=== PATIENT | female | born 1980 | race Caucasian/White ===

== ENCOUNTER 2021-03-27 07:51 | Day surgery (SDC) | payer BC, SELFPAY ==
[2021-03-27] VITALS (7 sets, daily range): BP systolic 104–135; BP diastolic 63–96; PULSE 72–89; RESP 16–18; TEMP 36–36.6; O2SAT 98–100; BMI 40.0
[2021-03-27 08:35] LABS: Hematocrit 42.3 % (37-47); Mean Corp Hgb Conc 33.1 g/dL (32-36); Mean Corpuscular Hgb 29.1 pg (27.0-32.0); Mean Corpuscular Volume 87.9 fL (81-99); Platelet Count 289 K/mm3 (150-450); RBC Distribution Width CV 12.8 % (11.6-14.6); RBC Distribution Width SD 41.5 fl (35.1-43.9); Red Blood Count 4.81 M/mm3 (4.2-5.4)
[2021-03-27 08:36] LABS: Internal QC Validated? YES +Cl - CLEAR BKGD; Pregnancy, Urine Negative Negative
[2021-03-27] MEDS: Lactated Ringers 1,000 ML 100 ML IV (08:38)
--- NOTE | 2021-03-27 09:23 | PCM.HP.OB ---
HPI - General HPI Narrative POLINA RODRIGUES, is a 40 F who presents for scheduled IUD removal, hysteroscopy, D&C, uterine ablation for menorrhagia and DUB with IUD in place. PFSH PFSH Medical History (Updated 03/27/21 @ 09:[address] Lilli Suarez, DO) Anxiety Arthritis Asthma Cardiology follow-up encounter Former smoker History of echocardiogram History of ganglion cyst Shortness of breath on exertion Home Medications albuterol sulfate 1 inh INHALATION Q6H PRN 03/24/21 [History Last Taken Unknown] naproxen sodium [Aleve] 220 mg PO BID PRN 03/24/21 [History Last Taken Unknown] Allergy/AdvReac Type Severity Reaction Status Date / Time No Known Allergies Allergy Verified 03/27/21 08:32 Surgical History (Updated 03/24/21 @ 14:19 by Anel Crisostomo) History of Hx of arthroscopic knee surgery Hx of dilation and curettage Hx of foot surgery Hx of tonsillectomy Social History (Updated 05/30/18 @ 12:55 by Jermain DOSHI, PA) Smoking Status: Former smoker Vital Signs Vital Signs Vital Signs: 03/27/21 08:33 Temperature 96.8 F L Temperature Source Temporal Pulse Rate 72 Respiratory Rate 16 Respiratory Pattern Normal Blood Pressure 135/86 H Blood Pressure Mean 102 Blood Pressure Source Monitor Blood Pressure Position Semi-Fowlers Blood Pressure Location Right Arm Pulse Ox 100 Oxygen Delivery Method Room Air Weight Weight: 226 lb 3.108 oz Body Mass Index (BMI) 40.0 Labs Labs Labs: Blood Type Pending Antibody Screen Pending Hct 42.3 % (37-47) Hgb 14.0 g/dL (12.0-15.0) Assessment & Plan (1) DUB (dysfunctional uterine bleeding): PLAN: See scanned in H&P. Patient was seen in pre op. IUD removal, hysteroscopy, D&C, Kiah uterine ablation were discussed and patient desires to proceed as planned. No changes noted to H&P. (2) Menorrhagia:
--- NOTE | 2021-03-27 09:30 | EMB_PTH ---
PATIENT: POLINA RODRIGUES [place] [facility] [place][id number] AGE/SX: 40/F ROOM: RE03/27/[address]: Dr. Lilli Suarez DO : 1980 BED: DIS: 03/27/2021 SPEC #: [id number] RECD: 03/27/21 15:30 STATUS: KAVYA REPro #: [id number] CELE: 03/27/21 09:[address]: Lilli Suarez DEPT: SURGICAL PATHOLOGY RECD BY: Paloma Carrillo ENTERED: 03/28/21 12:02 SP TYPE: ENDOM BX/C DESHAUN DR: Dr. 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 Chronic endometritis. Rare strips of benign superficial endocervix and squamous mucosa. AM:mariaan 03/31/2021 MICROSCOPIC DESCRIPTION Slides are reviewed. GROSS DESCRIPTION Received in fixative is one container labeled with the patient's name and designated endometrial curettings. The specimen consists of multiple fragments of hemorrhagic mucoid tissue that in aggregate measure 7.5 x 3 x 0.3 cm. The entire specimen is submitted in three cassettes. / JACE:mariana 03/28/21 TC:5 [facility]: [id number]
[2021-03-27] MEDS: Lidocaine 1% /Epi 1:100 (20ml) 20 ML Vial (09:46)
--- NOTE | 2021-03-27 10:12 | OP.PCM_ITS ---
Report of Operation Date of Procedure: 03/27/21 Pre-Operative Diagnosis: DUB, menorrhagia with IUD in place Post-Operative Diagnosis: As above Surgery/Procedure Performed:: IUD removal, hysteroscopy, D&C, Kiah uterine ablation Description of Surgical Findings:: Normal appearing uterine cavity and bilateral tubal ostia visualized. Minimal descent of the uterus and cervix. Surgeon: Lilli Suarez technical system analyst: None Type of Anesthesia: MAC Special Medications: None Specimen's removed: Endometrial curettings Drains: None Estimated Blood Loss (mL): < 50 cc Description of Procedure: The patient was taken to the operating room where MAC anesthesia was found to be adequate. She was prepped and draped in the dorsal lithotomy position using yellowfin stirrups. A weighted speculum was placed in the vagina to expose the cervix. The IUD strings were grasped with a ring forceps and with gentle traction the IUD was removed intact and without difficulty. A single tooth tenaculum was placed on the anterior lip of the cervix. The cervix was serially dilated to accommodate the hysteroscope. Cervical stenosis was noted. The hysteroscope was advanced to the fundus of the uterus and distended with normal saline as distention media. The uterine cavity was normal-appearing. No polyps or fibroids were noted. Hysteroscope was then removed. A sharp curettage was performed for moderate amount of tissue. Endo metrial curettings were sent to pathology for review. The uterus sounded to 10 cm. The cervical length was 4 cm. The Kiah device was set to a cavity length of 6 cm. The Kiah device was introduced to the fundus of the uterus without difficulty, the device was deployed, and the cavity assessment was passed on first try. Cauterization was performed in usual fashion using the Kiah device. The Kiah device was then removed. All instruments were removed. Bleeding was hemostatic. Vaginal sweep was performed. Instrument sponge counts were correct. Patient was taken to the recovery room in stable condition. Grafts/Implants Used: None Procedure Start Time: 09:46 Procedure Stop Time: 10:10 Complications None Admit VTE Documentation VTE Present on Admission: No VTE Mechan Device Prophylaxis: SCD's
--- NOTE | 2021-03-27 10:27 | PCM.DC ---
Discharge Instructions Diet Discharge Diet: No restrictions Activity Discharge Activity: Return to Normal Activity and [place] [address] (after 24 hours) May resume sexual activity in: 1-2 weeks (nothing in the vagina - no tampons, intercourse, hot tubs, baths, pools) Weight Bearing Status: Weight bearing as tolerated Lifting Restrictions: None Dressing / Incision Call your doctor if you observe: Fever of 101 or Higher, Numbness or Tingling, Inability to urinate, Inability to have a bowel movement, Using more than 1 pad per hour, Shortness of breath, Fainting spells, Swelling in the ankles, Chest pain, Increased palpitations (irregular heartbeat), Calf discomfort and Uncontrolled pain Follow Up Care Please Follow Up With: Lilli Suarez DO When: 1-2 weeks Test Results: Test results from this visit will be discussed in further detail at your follow-up appointment, if applicable. Discharge Plan Admission Primary Reason for Your Visit: Uterine ablation Attending Provider: Lilli uSarez Primary Care Provider: Jaya Hwang Instructions Additional Instructions / Restrictions: You will having bleeding, discharge and cramping. Call with severe pain or bleeding where you are saturating 1 pad per hour for 2 hours or more. Discharge Orders/Prescriptions Prescriptions: New oxycodone-acetaminophen [Percocet] 5-325 mg tablet 1 tab PO Q8H PRN (Reason: pain) 7 Days Qty: 5 RF: 0 No Action naproxen sodium [Aleve] 220 mg Tablet 220 mg PO BID PRN (Reason: Pain) RF: 0 albuterol sulfate 90 mcg/actuation Hfa Aerosol Inhaler 1 inh INHALATION Q6H PRN (Reason: SOB) RF: 0 Referrals / Follow Up: Jaya Hwang DO [Primary Care Provider] - Disposition Disposition (needs filled in before D/C Order can be placed): Home, Self Care
[2021-03-27] MEDS: Ibuprofen 200 MG Tablet 800 MG PO (11:45)
== END 2021-03-27 12:55 | disposition home or self-care (01) ==
LOC: SDC 07:54 → AC 07:57
PROVIDERS: Anesthesiology; PCP Student in an Organized Health Care Education/Training Program; Referring Provider Obstetrics & Gynecology; Visit Provider Obstetrics & Gynecology
PROC: 0U5B8ZZ Destruction of Endometrium, Via Natural or Artificial Opening Endoscopic (ICD-10-PCS; CPT 58558; principal; 2021-03-27 09:15)
DX: N71.1 Chronic inflammatory disease of uterus (principal); N93.8 Other specified abnormal uterine and vaginal bleeding; N92.0 Excessive and frequent menstruation with regular cycle; Z30.432 Encounter for removal of intrauterine contraceptive device; M19.90 Unspecified osteoarthritis, unspecified site; Z87.891 Personal history of nicotine dependence
CPT/HCPCS: 00952; 58301; 58563; 81025; 85027; 86850; 86900; 86901; 88305; J7120; J2405